=== PATIENT | female | born 1980 | race Caucasian/White ===

== ENCOUNTER → 2018-11-15 | Outpatient (CLI) | payer OTHER ==
--- NOTE | 2018-11-15 12:43 | REPMRS ---
Patient History The patient states she had a clinical breast exam in January 2018. No known family history of cancer. Digital Mammo Screening Bilat: November 15, 2018 - Exam #: [id number] Bilateral CC and MLO view(s) were taken. Technologist: Elena Salter, Technologist FINDINGS: There are scattered fibroglandular densities. There is no evidence of dominant mass, architectural distortion, or clustered microcalcification typical of malignancy. 3-D tomosynthesis shows no additional findings. Assessment: BI-RADS/ACR category 1 mammogram. Negative Mammogram. Recommendation Routine screening mammogram of both breasts in 1 year (for women over age 40). This patient's Lifetime Breast Cancer RIsk is estimated at 14.0 %. This mammogram was interpreted with the aid of an FDA-approved computer-aided dectection system. Electronically Signed By: Jeff Villafana MD 11/15/18 [id number]
== END ==
LOC: M RAD 08:16
PROVIDERS: ATTEND Clinical Nurse Specialist Psychiatric/Mental Health, Adult
DX: Z12.31 Encounter for screening mammogram for malignant neoplasm of breast (principal)

== ENCOUNTER 2019-07-06 16:35 | Inpatient (IN) | payer OTHER ==
[2019-07-06] VITALS (10 sets, daily range): BP systolic 129–169; BP diastolic 67–98
[~2019-07-06] VITALS: Ht 160 cm; Wt 83.1 kg
[2019-07-06] MEDS ORDERED: PRENTAB9 PO (17:00)
[2019-07-06] MEDS ORDERED: LR 1,000 ML IV SCH (17:16)
[2019-07-06] MEDS ORDERED: PENICILLIN G POTASSIUM IV 5 MU in D5W MINI-BAG PLUS 100 ML IV STA (17:22)
[2019-07-06 18:21] LABS: HEMATOCRIT 38.2 % (36.0-47.0); MEAN CORPUSCULAR HEMOGLOBIN 29.4 pg (27.0-33.0); MEAN CORPUSCULAR VOLUME 86.4 fl (80.0-96.0); PLATELET COUNT, AUTOMATED 207 10^3/uL (150-450); RED BLOOD COUNT 4.42 10^6/uL (4.00-5.40); WHITE BLOOD COUNT 14.4 10^3/uL (4.0-10.0)
[2019-07-06 18:39] LABS: ALT/SGPT 15 U/L (12-78); BILIRUBIN,TOTAL 0.4 MG/DL (0.2-1.0); CREATININE FOR GFR 0.57 MG/DL (0.55-1.30); GLOMERULAR FILTRATION RATE > 60.0 (>60); LDH LACTATE DEHYDROGENASE 169 U/L (84-246)
[2019-07-06 18:50] LABS: CREATININE,RANDOM URINE 25.2 MG/DL; TOTAL PROTEIN,RANDOM URINE 10.2 MG/DL (0.0-12.0)
[2019-07-06 18:53] LABS: APPEARANCE, URINE CLEAR (CLEAR); BACTERIA, URINE AUTO NEGATIVE (NEGATIVE); BILIRUBIN, URINE AUTO NEGATIVE (NEGATIVE); BLOOD, URINE BLOOD NEGATIVE (NEGATIVE); COLOR, URINE STRAW (YELLOW); GLUCOSE, URINE (UA) AUTO NEGATIVE (NEGATIVE); KETONE, URINE AUTO TRACE mg/dL (NEGATIVE); LEUKOCYTE ESTERASE, URINE AUTO NEGATIVE (NEGATIVE); MUCUS, URINE SMALL (NEGATIVE); NITRITE, URINE AUTO NEGATIVE (NEGATIVE); PROTEIN, URINE AUTO NEGATIVE (NEGATIVE); RBC, URINE AUTO 0 /HPF (0-3); SPECIFIC GRAVITY URINE AUTO 1.008 (1.002-1.035); SQUAMOUS EPITHELIAL CELL UR AU 0 /HPF (0-6); UROBILINOGEN, URINE AUTO 0.2 mg/dL (0.0-2.0); WBC, URINE AUTO 1 /HPF (0-3)
--- NOTE | 2019-07-06 19:14 | HPEPDOC ---
Obstetrical History & Physical General Date of Admission Jul 06, 2019 at 17:20 History of Present Illness Patient is a 39 yo @ 36+3wks gestation presents to L&D with concern for ROM @ 1500. Patient started having mild contractions after ROM. Patient has no other concerns. Chief Complaint: LOF, pre-term Information Provided By: Patient Age: 39 : 3 Term: 2 Pre-term: 0 Abortions: 0 Livin Care Care: Good Care Dating Final EDC: Jul 31, 2019 Final EDC for Daily Update: Jul 31, 2019 Final EDC by: 1st trimester (US) Past Medical History Past Obstetrical History : Past Obstetrical History: Multigravida ( x 2, @ 39+wks gestation uncomplicated) Past Medical History Medical History denies Surgical History: Denies/None Family History Significant Family History: No pertinent family hx Social History Marital Status: Family situation: Spouse/partner home Psychosocial History: No pertinent psych hx * Smoker: non-smoker Alcohol: Denies Drugs: denies Imunizations Tdap status: current Influenza Status: current Allergies Coded Allergies: No Known Allergies (Unverified , 07/06/19) Medications Scheduled No.137/Iron/Folic Acd ( Vitamin Tablet) 1 Each Tablet, 1 TAB PO DAILY Physical Examination Physical Examination GENERAL: Alert and oriented times three. ABDOMEN: Gravid and non-tender to touch. FETUS: Is vertex (VTX) by sterile vaginal examination (SVE), fetus is vertex (VTX) by Juan Manuel. HEART RATE: Regular rate and rhythm. LUNGS: Clear to auscultation (CTA). 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: grossly ruptured CE: 3/50/-2, mid, medium efw: 3000gm by Joseph Vital Signs/I&O Vital Signs Date Time Temp Pulse Resp B/P (MAP) Pulse Ox O2 Delivery O2 Flow Rate FiO2 07/06/19 16:58 98.4 79 18 148/98 (115) Laboratory Data 24H LABS Laboratory Tests 2 07/06/19 17:25: Serology Scanned Report Hepatitis B Testing 07/06/19 18:07: Nucleated Red Blood Cells % (auto) 0.0, Glomerular Filtration Rate > 60.0, Uric Acid 3.0, Total Bilirubin 0.4, Aspartate Amino Transf (AST/SGOT) 13, Alanine Aminotransferase (ALT/SGPT) 15, Lactate Dehydrogenase 169 07/06/19 18:17: Urine Random Creatinine 25.2, Urine Random Total Protein 10.2 CBC/BMP Laboratory Tests 07/06/19 18:07 Pertinent Laboratoy Data Blood Type: O+ RBC Antibody Screen: Negative HIV: Negative Hepatitis B: Negative Rapid Plasma Reagin: Nonreactive Rubella: Immune Varicella: Immune Chlamydia/Gonorrhea: Negative Group B Streptococcus: Unknown Glucose Tolerance Test: 106 Anatomy Ultrasound Placenta Location: Posterior Normal Anatomy: Yes Placenta Previa: No Vaginal Examination Dilation: 3 cm Effacement: 50% Station: -2 Cervical Consistency: Medium Cervical Position: Middle Presentation: Cephalic presentation Position: Vertex (occiput) Assessment Heart Rate (FHR): 130 Variability: Moderate Accelerations: Positive Decelerations: None Tocometer Contractions: Yes Frequency: irregular Assessment/Plan Assessment patient is a 39 yo @ 36+3wks gestation with PPROM. Discussed with patient admission with possible augmentation of labor with pitocin as needed. Discussed monitoring with external monitor and possible internal monitor with FSE and/or IUPC as indicated. Risk of emergent section, use of forceps and vacuum with related possible complications, infection requiring iv antibiotics and prolonged hospital stay, bleeding requiring blood transfusion and associated risk of anaphylactic reaction and transmission of blood borne pathogen such as HIV and hepatitis, episiotomy, as well as pain. Plan Admit and orient. Principle Software Engineer and consent. Diet: clears Group B Streptococcus (GBS) unknown and : pcn for prophy Labs and intravenous (IV) per unit protocol. Counseled on Pitocin and induction of labor (IOL). start pit when second dose of pcn is given. Anticipate [normal spontaneous delivery ()]. C-S as appropriate. SIENA LING DO Jul 06, 2019 19:14
[2019-07-06] MEDS ORDERED: OXYTOCIN DRIP 30 UNITS in IV 1 EA IV SCH ×2 (19:15→22:54)
[2019-07-06] MEDS ORDERED: OXYTOCIN 30 UNITS IN 0.9% NaCl 500ML IV BAG (J2590) As Ordered ONE (21:23)
[2019-07-06] MEDS ORDERED: PENICILLIN G POTASSIUM IV 2.5 MU in IV 1 EA IV SCH (22:00)
--- NOTE | 2019-07-06 22:34 | DNPDOC ---
[facility] Delivery Note Delivery Note DATE OF DELIVERY: 06Jul2019 PREDELIVERY DIAGNOSIS: 36+3/7 weeks' gestation and labor. POST DELIVERY DIAGNOSIS: Delivered. PROCEDURE: Spontaneous vaginal delivery AUTO SUSPENSION AND STEERING MECHANIC: Dr. emily ling ANESTHESIA: unmedicated ESTIMATED BLOOD LOSS: 200 cc FINDINGS: 5 pound 9 ounce male infant, Score 8/9, nuchal cord times x1 reduced. DELIVERY SUMMARY: Patient delivered baby OA, restituted ROT. loose nuchal cord reduced. both shoulders delivered, body followed with ease. baby placed on maternal abdomen. cord allows to stop pulsating. Cord clamped x2 and cut. pitocin bolus started. placenta delivered spontaneously. fundus massaged firm. Inspection reveals first degree midline laceration, repaired with figure of eight stitch. baby and mother bonding when I left the room. EMILY LING DO Jul 06, 2019 22:34
[2019-07-06] MEDS ORDERED: ACETAMINOPHEN 500 MG TAB PO PRN (22:45)
[2019-07-06] MEDS ORDERED: MEASLES,MUMPS,RUBELLA VACCINE INJ (MMR-II) (90707) SC SCH (22:45)
[2019-07-06] MEDS ORDERED: DIBUCAINE 1% OINTMENT 30GM TOP PRN (22:45)
[2019-07-06] MEDS ORDERED: ACETAMINOPHEN TAB 650MG DOSE (2X325MG) PO PRN (22:45)
[2019-07-06] MEDS ORDERED: RHOGAM 300 MCG (1500 IU) INJ (J2790) IM SCH (22:45)
[2019-07-06] MEDS ORDERED: LIDOCAINE 1% MDV 20ML VIAL SC ONE (23:00)
[2019-07-07 00:17] VITALS: BP 123/68
[2019-07-07] MEDS: IBUPROFEN 800 MG TAB PO PRN ×3 (02:55→21:35)
[2019-07-07] MEDS: DOCUSATE SODIUM 100 MG CAP PO PRN (02:56)
[2019-07-07 06:00] VITALS: BP 109/61
--- NOTE | 2019-07-07 07:49 | IPNPDOC ---
Progress Note Date of Service: Jul 07, 2019 Day#: 1 Progress Note SUBJECT: Patient is a 39 yo S/P @ 36+3wks ppd #1. GBS unknown and was inadequately treated. Admission noted for elevated BP, prelabs significant for spot urine (straight cath) 0.4. Patient without concerns today. She is breast feeding. She has been ambulating, voiding spontaneously without issue and tolerating regular diet. Patient denies GRIMALDO/N/V/change of vision. Patient desires to start on oral contraceptive with bf. OBJECTIVE: VITAL SIGNS: normal to mild range, afebrile Alert and oriented times three. Abdomen: Fundus firm at U-1. Soft, NTTP. LE: no edema/erythema/tenderness A/P patient is PPD #1, pre-eclampsia without severe features. Discussed with patient regarding BP concerns and possible pre-eclampsia. recommends patient f/u with clinic 2 days after discharge for blood pressure check. Discussed contraceptive and patient desires to have norqd with breast feeding for now. information on different contraceptive forms given. routine ppc. discharge when baby is discharge. VS, I&O, 24H, Fishbone Vital Signs/I&O Vital Signs Date Time Temp Pulse Resp B/P (MAP) Pulse Ox O2 Delivery O2 Flow Rate FiO2 07/07/19 06:00 98.6 51 16 109/61 (77) I&O- Last 24 Hours up to 6 AM 07/07/19 06:00 Intake Total 500 ml Output Total 200 ml Balance 300 ml Laboratory Data 24H LABS Laboratory Tests 2 07/06/19 17:25: Serology Scanned Report Hepatitis B Testing 07/06/19 18:07: Nucleated Red Blood Cells % (auto) 0.0, Glomerular Filtration Rate > 60.0, Uric Acid 3.0, Total Bilirubin 0.4, Aspartate Amino Transf (AST/SGOT) 13, Alanine Aminotransferase (ALT/SGPT) 15, Lactate Dehydrogenase 169 07/06/19 18:17: Urine Color STRAW, Urine Appearance CLEAR, Urine pH 6.0, Urine Specific [place] 1.008, Urine Protein NEGATIVE, Urine Glucose (Auto)(UA) NEGATIVE, Urine Ketones (Auto) TRACEH, Urine Blood NEGATIVE, Urine Nitrite NEGATIVE, Urine Bilirubin NEGATIVE, Urine Urobilinogen 0.2, Urine Leukocyte Esterase (Auto) NEGATIVE, Urine WBC (Auto) 1, Urine RBC (Auto) 0, Urine Hyaline Casts (Auto) 0, Urine Bacteria (Auto) NEGATIVE, Urine Squamous Epithelial Cells 0, Urine Mucus (Auto) SMALL, Urine Sperm (Auto) , Urine Random Creatinine 25.2, Urine Random Total Protein 10.2 CBC/BMP Laboratory Tests 07/06/19 18:07 SIENA LING DO Jul 07, 2019 07:49
[2019-07-07] MEDS ORDERED: PRENATAL VITAMINS CHEWABLE TABLET PO SCH (09:00)
[2019-07-07 17:57] VITALS: BP 111/60
[2019-07-08 06:00] VITALS: BP 121/70
[2019-07-08] MEDS: DOCUSATE SODIUM 100 MG CAP PO PRN (06:03)
--- NOTE | 2019-07-08 09:57 | IPNPDOC ---
Progress Note Date of Service: Jul 08, 2019 Day#: 2 Progress Note PPD 2 SUBJECT: Patient is a 39yo s/p uncomplicated @ 36+3wks after presenting with PPROM, doing well on ppd #2. GBS unknown and was inadequately treated prior to delivery. Upon admission she was noted to have elevated BP and pre-E labs were significant for spot urine (straight cath) 0.4. However, bp normalized without medication and she never had development of any other sx of pre-E. She has been ambulating, voiding spontaneously without issue and tolerating regular diet. Breast feeding without issue. Reports lochia is like a normal period. Denies f/c/n/v/SOB/CP/GRIMALDO/vision changes. OBJECTIVE: VITAL SIGNS: Within normal limits, afebrile. Alert and oriented times three. Abdomen: Fundus firm at U-2. Soft, NTTP. BLE: no pain with palpation of calves ASSESSMENT: Patient is a 39yo s/p uncomplicated @ 36+3wks after presenting with PPROM and discovered to have pre-E withOUT severe features on admission, doing well on ppd #2. Vitals within normal limits, afebrile, hemodynamically stable with no evidence of infection. No e/o worsening pre-E. PLAN: 1. Discharge to home today if cash posting representative allows discharge of . If not, will hold off on discharge until tomorrow. 2. Tylenol and Motrin for pain. 3. Encourage breast feeding and ambulation. 4. Minipill for contraception, Rx written. Discussed vasectomy and BTL this morning since patient has satisfied parity. She will consider further. 5. Patient instructed to return to clinic on Tuesday, 07/10 for bp check 6. Discussed return precautions at length. Dr. Kimmie Tafoya MD VS, I&O, 24H, Fishbone Vital Signs/I&O Vital Signs Date Time Temp Pulse Resp B/P (MAP) Pulse Ox O2 Delivery O2 Flow Rate FiO2 07/08/19 06:00 98.1 55 16 121/70 (87) 100 Room Air Kimmie Tafoya MD Jul 08, 2019 09:57
--- NOTE | 2019-07-08 09:59 | OBDS ---
[facility] Obstetrical Discharge Sum. Obstetrical Discharge Summary Date: Jul 08, 2019 : 3 Term: 2 Pre-term: 1 Abortions: 0 Livin VDRL: Non-Reactive Rh: Positive Rubella: Immune Sex: Male Infant Weight: pounds (5), ounces (9) A/P, Post Course List any complications Admission diagnosis: gravid @ 36+3wks premature ruptured of membranes pre-eclampsia without severe features Discharge diagnosis: spontaneous vaginal delivery first degree vaginal laceration pre-eclampsia without severe features Condition at Discharge: stable Discharge Instructions: home Activity: as tolerated Diet: regular Medications: fill at [facility] Follow-up: in clinic 2 days after discharge for blood pressure check; 6-8wks Hospital course: Ghazala is a 39yo [id number] s/p uncomplicated @ 36+3wks after presenting with PPROM and discovered to have pre-E withOUT severe features on admission (based on urine protein:creatinine). She has had a benign course. She never developed any other symptoms of pre-E, bp normalized withOUT medications. Vitals remained within normal limits and at time of discharge she was hemodynamically stable with no evidence of infection. Ready for discharge on day 2. MD ANURADHA Antoine LUAT N. DO Jul 06, 2019 22:41 Kimmie Tafoya MD Jul 08, 2019 09:59
[2019-07-08] MEDS ORDERED: ACET-683 PO (10:01)
[2019-07-08] MEDS ORDERED: DIBU10OI TOP (10:01)
[2019-07-08] MEDS ORDERED: IBUP80TA PO (10:01)
[2019-07-08] MEDS: IBUPROFEN 800 MG TAB PO PRN (10:28)
[2019-07-08 14:11] VITALS: BP 120/65
== END 2019-07-08 13:40 | disposition home or self-care (01) | DRG 807 ==
LOC: M LDO 16:35 → M LDI 17:20 → M OBS 23:45
PROVIDERS: ADMIT Obstetrics & Gynecology; ATTEND Obstetrics & Gynecology
PROC: 10E0XZZ Delivery of Products of Conception, External Approach (ICD-10-PCS; principal; 2019-07-06)
PROC: 0HQ9XZZ Repair Perineum Skin, External Approach (ICD-10-PCS; 2019-07-06)
DX: O42.013 Preterm premature rupture of membranes, onset of labor within 24 hours of rupture, third trimester (principal); Z37.0 Single live birth; Z3A.36 36 weeks gestation of pregnancy; O99.824 Streptococcus B carrier state complicating childbirth; O14.04 Mild to moderate pre-eclampsia, complicating childbirth; O69.81X0 Labor and delivery complicated by cord around neck, without compression, not applicable or unspecified; O70.0 First degree perineal laceration during delivery

== ENCOUNTER 2020-12-03 08:04 | Emergency (ER) | payer OTHER ==
[~2020-12-03] VITALS: Ht 160 cm; Wt 155.0 kg
[~2020-12-03 08:04] MED LIST: ACET-683 PO; DIBU10OI TOP; IBUP80TA PO; PRENTAB9 PO
[2020-12-03 08:05] VITALS: BP 132/79
== END 2020-12-03 09:10 | disposition left against medical advice (07) ==
LOC: M ED 08:04
DX: Z53.21 Procedure and treatment not carried out due to patient leaving prior to being seen by health care provider (principal)